=== PATIENT | female | born 1980 | race Hispanic/Latino ===

== ENCOUNTER 2017-12-05 23:06 | Emergency (ER) | payer SELFPAY ==
[2017-12-06 00:33] LABS: Absolute Lymphocytes (CBC) 3.2 K/uL (0.7-4.9); Absolute Monocytes 0.6 K/uL (0.1-1.3); Absolute Neutrophil 7.4 K/uL (1.8-8.0); Eosinophils % 1.1 % (0-4.4); Hematocrit 32.5 % (36.0-45.0); Lymphocytes % 28.1 % (15.3-44.8); MCH 20.1 pg (27.0-35.0); MCV 65.4 fL (80-100); MPV 8.9 fL (7.6-11.3); Monocytes % 5.6 % (3.3-12.3); RBC Red Blood Cell Count 4.97 M/uL (3.86-4.86)
[2017-12-06 00:35] LABS: Protime INR 1.61
[2017-12-06 00:54] LABS: Bicarbonate 27 mEq/L (21-31); Glucose Level 114 mg/dL (65-120); Potassium 3.6 mEq/L (3.6-5.0); Sodium Level 138 mEq/L (135-145)
[2017-12-06 01:00] LABS: ALT/SGPT 15 IU/L (10-60); AST/SGOT 18 IU/L (10-42); Albumin 4.3 g/dL (3.2-5.5); BUN Blood Urea Nitrogen 13 mg/dL (6-20); Bilirubin Direct < 0.1 mg/dL (0-0.2); Bilirubin Total 0.3 mg/dL (0.3-1.2); Glomerular Filtration Rate > 90 mL/min (=/>90); Magnesium 2.2 mg/dL (1.8-2.5); Protein, Total 7.8 g/dL (6.0-8.3)
[2017-12-06 01:05] LABS: Urine Blood 3+ (NEG); Urine Glucose NEGATIVE (NEG); Urine Protein NEGATIVE (NEG)
[2017-12-06 02:27] LABS: Blood Morphology Comment NOTED (NOT SEEN); Hypochromasia 1+; Platelet Estimate ADEQ; Urine White Blood Cell Casts OK
[2017-12-06 02:32] LABS: Alkaline Phosphatase 77 IU/L (42-121)
--- NOTE | 2017-12-06 04:04 | ER ---
Nurse's Notes [facility] Name: Haley Serna Age: 37 yrs Sex: Female : 1980 Arrival Date: 12/05/2017 Time: 23:09 Bed 4 Private MD: Diagnosis: Chest pain, unspecified;Benign paroxysmal vertigo Presentation: 12/05 23:31 Presenting complaint: Patient states: she started having chest pain and shortness of bb breath earlier today. Transition of care: patient was not received from another setting of care. Onset of symptoms was December 05, 2017. Care prior to arrival: None. 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 - Social history:: Smoking status: Patient/guardian denies using tobacco, Patient/guardian denies using alcohol, street drugs. Screenin:46 Abuse screen: Denies threats or abuse. Denies injuries from another. Nutritional lk1 screening: No deficits noted. Tuberculosis screening: No symptoms or risk factors identified. Fall Risk None identified. Assessment: 23:44 General: Appears in no apparent distress. Behavior is calm, cooperative, appropriate lk1 for age. Pain: Complains of pain in chest Pain radiates to neck Pain currently is 9 out of 10 on a pain scale. Pain began 1 day ago. Neuro: Level of Consciousness is awake, alert, obeys commands, Oriented to person, place, time, situation, Appropriate for age. Neuro: Moves all extremities. Full function Gait is steady, Speech is normal, Facial symmetry appears normal. Cardiovascular: Heart tones S1 S2 present Capillary refill is brisk Patient's skin is warm and dry. Respiratory: Airway is patent Respiratory effort is even, unlabored, Respiratory pattern is regular, symmetrical. GI: Abdomen is non-distended. : No signs and/or symptoms were reported regarding the genitourinary system. EENT: No signs and/or symptoms were reported regarding the EENT system. Derm: No signs and/or symptoms reported regarding the dermatologic system. 12/06 00:15 Reassessment: Patient and/or family updated on plan of care and expected duration. Pain ea level reassessed. Patient is alert, oriented x 3, equal unlabored respirations, skin warm/dry/pink. 01:33 Reassessment: Patient and/or family updated on plan of care and expected duration. Pain ea level reassessed. Patient is alert, oriented x 3, equal unlabored respirations, skin warm/dry/pink. returned form CT. 02:00 Reassessment: Patient and/or family updated on plan of care and expected duration. Pain lk1 level reassessed. Patient is alert, oriented x 3, equal unlabored respirations, skin warm/dry/pink. Patient states her chest pain has resolved, but she is feeling dizzy. 03:36 Reassessment: Patient and/or family updated on plan of care and expected duration. Pain ea level reassessed. Patient is alert, oriented x 3, equal unlabored respirations, skin warm/dry/pink. 04:13 Reassessment: Patient and/or family updated on plan of care and expected duration. Pain ea level reassessed. Patient is alert, oriented x 3, equal unlabored respirations, skin warm/dry/pink. Discharge instructions given to patient, verbalized understanding of instructions. Vital Signs: 12/05 23:33 BP 133 / 83; Pulse 83; Resp 18 S; Temp 98.3(O); Pulse Ox 100% on R/A; Weight 77.11 kg bb (R); Height 5 ft. 0 in. (152.40 cm) (R); Pain 8/10; 12/06 00:00 BP 125 / 75; Pulse 72; Resp 16; Pulse Ox 100% on R/A; lk1 01:00 BP 109 / 72; Pulse 75; Resp 18; Pulse Ox 100% on R/A; lk1 02:00 BP 111 / 68; Pulse 72; Resp 14; Pulse Ox 100% on R/A; Pain 0/10; lk1 03:00 BP 105 / 81; Pulse 74; Resp 12; Pulse Ox 99% on R/A; lk1 03:30 BP 111 / 64; Pulse 73; Resp 14; Pulse Ox 99% on R/A; Pain 0/10; lk1 04:17 BP 110 / 70; Pulse 78; Resp 16 S; Temp 98.7(O); Pulse Ox 99% on R/A; Pain 0/10; ea 12/05 23:33 Body Mass Index 33.20 (77.11 kg, 152.40 cm) bb ED Course: 12/05 23:09 Patient arrived in ED. mr 23:25 Alex Golden, JOB SETTER is PHCP. pm1 23:25 Tj Guerra MD is Attending Physician. pm1 23:27 Antoinette Belcher, BELEN is Primary Nurse. lk1 23:32 Triage completed. bb 23:33 Arm band placed on Patient placed in an exam room, on a stretcher, on pulse oximetry. bb EKG completed in triage. Results shown to MD. 12/06 00:00 Patient has correct armband on for positive identification. Bed in low position. Call ea light in reach. Side rails up X2. 00:00 clinical research monitor on. Pulse ox on. NIBP on. ea 00:00 Inserted saline lock: 20 gauge in right antecubital area, using aseptic technique. ea Blood collected. Patient maintains SpO2 saturation greater than 95% on room air. 00:01 X-ray completed. Portable x-ray completed in exam room. Patient tolerated procedure kw well. 04:16 No provider procedures requiring assistance completed. IV discontinued, intact, ea bleeding controlled, No redness/swelling at site. Pressure dressing applied. Administered Medications: 03:36 Drug: Valium 2 mg Route: PO; ea 04:00 Follow up: Response: No adverse reaction ea Outcome: 04:03 Discharge ordered by MD. pm1 04:14 Discharge instructions given to patient, Instructed on discharge instructions, follow ea up and referral plans. medication usage, Demonstrated understanding of instructions, follow-up care, medications, Prescriptions given X 1. 04:17 Discharged to home ambulatory, with family. ea 04:17 Condition: improved 04:18 Patient left the ED. ea Signatures: Fidelia Lei Tashia De Jesus, RN RN Jewels Bradley Leah, BELEN RN lk1 Alex Godlen, JOB SETTER JOB SETTER pm1 Serena Owusu RN RN leoncio Corrections: (The following items were deleted from the chart) 12/05 23:40 23:33 Home Meds: Xarelto oral oral; bb bb
--- NOTE | 2017-12-06 04:04 | EDPHYS ---
Physician Documentation [facility] Name: Haley Serna Age: 37 yrs Sex: Female : 1980 Arrival Date: 12/05/2017 Time: 23:09 Bed 4 Private MD: ED Physician Tj Guerra HPI: 12/06 00:00 This 37 yrs old Female presents to ER via Ambulatory with complaints of Chest pm1 Pain. 00:00 The patient or guardian reports chest pain that is located primarily in the substernal pm1 area. 00:00 The pain does not radiate. Associated signs and symptoms: Pertinent positives: pm1 shortness of breath, Pertinent negatives: abdominal pain, cough. The chest pain is described as aching. Duration: The patient or guardian reports a single episode. Modifying factors: The symptoms are alleviated by nothing. the symptoms are aggravated by nothing. Severity of pain: in the emergency department the pain has improved. The patient has not experienced similar symptoms in the past. Patient with onset of sob of breath and chest pain at 1700 and worsening at 1900. 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 - Social history:: Smoking status: Patient/guardian denies using tobacco, Patient/guardian denies using alcohol, street drugs. ROS: 12/06 03:57 Constitutional: Negative for fever, chills, and weight loss, Eyes: Negative for injury, pm1 pain, redness, and discharge. Neck: Negative for injury, pain, and swelling. Abdomen/GI: Negative for abdominal pain, nausea, vomiting, diarrhea, and constipation, Back: Negative for injury and pain, : Negative for injury, bleeding, discharge, and swelling, MS/Extremity: Negative for injury and deformity, Skin: Negative for injury, rash, and discoloration. ENT: Positive for sinus congestion and ear pressure 1.5 weeks ago. Cardiovascular: Positive for chest pain, Negative for edema, palpitations. Respiratory: Positive for shortness of breath, Negative for cough, dyspnea on exertion. Neuro: Positive for headache. Exam: 03:57 Constitutional: This is a well developed, well nourished patient who is awake, alert, pm1 and in no acute distress. Head/Face: Normocephalic, atraumatic. Eyes: Pupils equal round and reactive to light, extra-ocular motions intact. Lids and lashes normal. Conjunctiva and sclera are non-icteric and not injected. Cornea within normal limits. Periorbital areas with no swelling, redness, or edema. ENT: Nares patent. No nasal discharge, no septal abnormalities noted. Tympanic membranes are normal and external auditory canals are clear. Oropharynx with no redness, swelling, or masses, exudates, or evidence of obstruction, uvula midline. Mucous membranes moist. Neck: Trachea midline, no thyromegaly or masses palpated, and no cervical lymphadenopathy. Supple, full range of motion without nuchal rigidity, or vertebral point tenderness. No Meningismus. Chest/axilla: Normal chest wall appearance and motion. Nontender with no deformity. No lesions are appreciated. Cardiovascular: Regular rate and rhythm with a normal S1 and S2. No gallops, murmurs, or rubs. Normal PMI, no JVD. No pulse deficits. Respiratory: Lungs have equal breath sounds bilaterally, clear to auscultation and percussion. No rales, rhonchi or wheezes noted. No increased work of breathing, no retractions or nasal flaring. Abdomen/GI: Soft, non-tender, with normal bowel sounds. No distension or tympany. No guarding or rebound. No evidence of tenderness throughout. Back: No spinal tenderness. No costovertebral tenderness. Full range of motion. Skin: Warm, dry with normal turgor. Normal color with no rashes, no lesions, and no evidence of cellulitis. MS/ Extremity: Pulses equal, no cyanosis. Neurovascular intact. Full, normal range of motion. 03:57 Neuro: Orientation: is normal, Cranial nerves: CN II- XII are normal as tested, Cerebellar function: normal finger to nose testing, Motor: moves all fours, Sensation: is normal, no obvious gross deficits. Vital Signs: 12/05 23:33 BP 133 / 83; Pulse 83; Resp 18 S; Temp 98.3(O); Pulse Ox 100% on R/A; Weight 77.11 kg bb (R); Height 5 ft. 0 in. (152.40 cm) (R); Pain 8/10; 12/06 00:00 BP 125 / 75; Pulse 72; Resp 16; Pulse Ox 100% on R/A; lk1 01:00 BP 109 / 72; Pulse 75; Resp 18; Pulse Ox 100% on R/A; lk1 02:00 BP 111 / 68; Pulse 72; Resp 14; Pulse Ox 100% on R/A; Pain 0/10; lk1 03:00 BP 105 / 81; Pulse 74; Resp 12; Pulse Ox 99% on R/A; lk1 03:30 BP 111 / 64; Pulse 73; Resp 14; Pulse Ox 99% on R/A; Pain 0/10; lk1 04:17 BP 110 / 70; Pulse 78; Resp 16 S; Temp 98.7(O); Pulse Ox 99% on R/A; Pain 0/10; ea 12/05 23:33 Body Mass Index 33.20 (77.11 kg, 152.40 cm) bb MDM: 12/05 23:36 Patient medically screened. pm1 12/06 01:30 ED course: Patients chest pain and shortness of breath resolved. Patient reports pm1 headache present when the blood pressure cuff inflates. 02:50 Data reviewed: vital signs. pm1 03:59 Data interpreted: Pulse oximetry: on room air is 99 %. Interpretation: normal. pm1 04:02 Counseling: I had a detailed discussion with the patient and/or guardian regarding: the pm1 historical points, exam findings, and any diagnostic results supporting the discharge/admit diagnosis, lab results, radiology results, the need for outpatient follow up, to return to the emergency department if symptoms worsen or persist or if there are any questions or concerns that arise at home. 12/05 23:41 Order name: Basic Metabolic Panel pm1 12/05 23:41 Order name: BNP pm1 12/05 23:41 Order name: CBC with Diff pm1 12/05 23:41 Order name: LFT's pm1 12/05 23:41 Order name: Magnesium pm1 12/05 23:41 Order name: PT-INR pm1 12/05 23:41 Order name: Ptt, Activated pm1 12/05 23:41 Order name: Troponin (emerg Dept Use Only) pm1 12/06 00:01 Order name: Urine Dipstick--Ancillary (enter results) rg2 12/06 00:01 Order name: Urine --Ancillary (enter results) rg2 12/06 00:48 Order name: CBC with Automated Diff; Complete Time: 02:46 EDMS 12/06 00:49 Order name: Protime (+INR); Complete Time: 00:52 EDMS 12/06 00:49 Order name: PTT, Activated Partial Thromb; Complete Time: 00:52 EDMS 12/06 00:55 Order name: Basic Metabolic Panel; Complete Time: 02:46 EDMS 12/05 23:41 Order name: XRAY Chest (1 view) pm1 12/05 23:41 Order name: EKG; Complete Time: 23:42 pm1 12/05 23:41 Order name: Cardiac monitoring; Complete Time: 00:21 pm1 12/05 23:41 Order name: EKG - Nurse/Tech; Complete Time: 00:21 pm1 12/05 23:41 Order name: IV Saline Lock; Complete Time: 00:21 pm1 12/06 00:37 Order name: CT Head Brain wo Cont pm1 12/06 01:01 Order name: Liver (Hepatic) Function; Complete Time: 02:46 EDMS 12/06 01:01 Order name: Magnesium; Complete Time: 02:46 EDMS 12/06 01:02 Order name: Troponin (Emerg Dept Use Only); Complete Time: 01:09 EDMS 12/06 01:05 Order name: Urine --Ancillary; Complete Time: 01:09 EDMS 12/06 01:05 Order name: Urine Dipstick-Ancillary; Complete Time: 01:09 EDMS 12/06 01:06 Order name: BNP B-Type Natriuretic Peptide; Complete Time: 01:09 EDMS 12/06 02:28 Order name: CBC Smear Scan; Complete Time: 02:46 EDMS 12/06 02:46 Order name: Troponin (emerg Dept Use Only) pm1 12/06 04:01 Order name: Troponin (Emerg Dept Use Only); Complete Time: 04:02 EDMS 12/05 23:41 Order name: Labs collected and sent; Complete Time: 00:21 pm1 12/05 23:41 Order name: O2 Per Protocol; Complete Time: 00:21 pm1 12/05 23:41 Order name: O2 Sat Monitoring; Complete Time: 00:21 pm1 12/05 23:41 Order name: Urine Dipstick-Ancillary (obtain specimen); Complete Time: 23:54 pm1 12/05 23:41 Order name: Urine Test (obtain specimen); Complete Time: 00:21 pm1 Administered Medications: 03:36 Drug: Valium 2 mg Route: PO; ea 04:00 Follow up: Response: No adverse reaction ea Disposition: 12/06/17 04:03 Discharged to Home. Impression: Chest pain, unspecified, Benign paroxysmal vertigo. - Condition is Stable. - Discharge Instructions: Benign Positional Vertigo, Nonspecific Chest Pain. - Prescriptions for Valium 2 mg Oral Tablet - take 1 tablet by ORAL route every 8 hours As needed; 10 tablet. - Medication Reconciliation Form, Thank You Letter form. - Follow up: Emergency Department; When: As needed; Reason: Worsening of condition. Follow up: Private Physician; When: 2 - 3 days; Reason: Recheck today's complaints, Continuance of care, Re-evaluation by your physician. - Problem is new. - Symptoms have improved. Addendum: 12/10/2017 06:23 Co-signature as Attending Physician, Tj Guerra MD. g s Signatures: Dispatcher [employer] EDMS Tashia De Jesus RN RN bb Marinas, Patrick, BIAS MACHINE OPERATOR BIAS MACHINE OPERATOR pm1 Serena Owusu RN RN ea Starr, Gregory, MD MD Corrections: (The following items were deleted from the chart) 12/05 23:40 23:33 Home Meds: Xarelto oral oral; michele bautista
--- NOTE | 2017-12-06 08:14 | RAD REPORT ---
EXAM DESCRIPTION: RAD - Chest Single View - 12/06/2017 12:04 am CLINICAL HISTORY: Chest pain. COMPARISON: None. FINDINGS: Portable technique limits examination quality. The lungs are grossly clear. The heart is normal in size. No displaced fractures. IMPRESSION: No acute intrathoracic process suspected.
--- NOTE | 2017-12-06 08:27 | RAD REPORT ---
EXAM DESCRIPTION: CT - Head Brain Wo Cont - 12/06/2017 5:46 am CLINICAL HISTORY: Headache COMPARISON: None. TECHNIQUE: All CT scans are performed using dose optimization technique as appropriate and may inclu de automated exposure control or mA/KV adjustment according to patient size. FINDINGS: No intracranial hemorrhage, hydrocephalus or extra-axial fluid collection.No areas of brai n edema or evidence of midline shift. The paranasal sinuses and mastoids are clear. The calvarium is intact. IMPRESSION: No acute intracranial abnormality.
--- NOTE | 2017-12-06 10:02 | EKG ---
Test Date: 2017-12-05 Test Time: 23:32:28 [place] Supervisor: EMS MEASUREMENT RESULTS: Intervals: Rate: 72 MN: 144 QRSD: 80 QT: 390 QTc: 427 [place]: P: 44 MN: 144 QRS: 45 T: 52 INTERPRETIVE STATEMENTS: Normal sinus rhythm Normal ECG No previous ECG available for comparison Electronically Signed On 12-06-17 10:01:31 CDT by Italo Whitten
== END 2017-12-06 04:18 | disposition home or self-care (01) ==
LOC: ER 23:06
DX: H81.10 Benign paroxysmal vertigo, unspecified ear (principal); Z88.1 Allergy status to other antibiotic agents; D68.51 Activated protein C resistance
CPT/HCPCS: 36415; 70450; 71045; 80048; 80076; 81003; 81025; 83735; 83880; 84484; 85025; 85610; 85730; 93005; 99285